=== PATIENT | male | born 1980 | race African-American/Black ===

== ENCOUNTER 2017-05-30 20:42 | Emergency (ER) | payer BC ==
[2017-05-30] MEDS ORDERED: Ketorolac Tromethamine 60 MG/2 ML VIAL ONE (21:01)
== END 2017-05-30 21:05 | disposition home or self-care (01) ==
LOC: BURERS 20:42
DX: R07.89 Other chest pain (principal); J45.909 Unspecified asthma, uncomplicated
CPT/HCPCS: 96372; J1885

== ENCOUNTER 2018-04-27 19:26 | Emergency (ER) | payer BC, OTHER, SELFPAY ==
[2018-04-27] MEDS ORDERED: Ibuprofen 800 MG TAB ONE (19:42)
--- NOTE | 2018-04-27 22:50 | RAD ---
RIGHT ELBOW FOUR VIEWS: 04/27/18 No fracture or joint space abnormality was seen. The fat pads are marginally prominent so there may b e a small joint effusion. IMPRESSION: Possible small joint effusion. The exam otherwise unremarkable. POS: HOME
[2018-04-28] MEDS ORDERED: Labetalol HCl 100 MG/20 ML VIAL ONE (14:56)
== END 2018-04-27 20:18 ==
LOC: BURERS 19:26
DX: M10.9 Gout, unspecified (principal); J45.909 Unspecified asthma, uncomplicated; Z79.899 Other long term (current) drug therapy